=== PATIENT | female | born 1965 | race Caucasian/White ===

== ENCOUNTER → 2021-01-14 11:23 | Outpatient (CLI) | payer OTHER, SELFPAY ==
[2021-01-14] MEDS: COVID-19 VACC #1, MRNA(MOD) 100 MCG/0.5 ML VIAL IM (11:38)
== END ==
PROVIDERS: Visit Provider Internal Medicine
DX: Z23 Encounter for immunization (principal)
CPT/HCPCS: 0011A; 91301

== ENCOUNTER → 2021-02-11 11:18 | Outpatient (CLI) | payer OTHER, SELFPAY ==
[2021-02-11] MEDS: COVID-19 VACC #2, MRNA(MOD) 100 MCG/0.5 ML VIAL IM (11:25)
== END ==
PROVIDERS: Visit Provider Internal Medicine
DX: Z23 Encounter for immunization (principal)
CPT/HCPCS: 0012A; 91301

== ENCOUNTER → 2023-02-02 08:26 | Outpatient (CLI) | payer OTHER, SELFPAY ==
--- NOTE | 2023-02-02 08:28 | DI.RAD.S_ITS ---
PROCEDURE: XR FOOT LT MIN 3V INDICATIONS: Left foot pain TECHNIQUE: Three views of the foot were acquired. COMPARISON: [facility], , FOOT 3V LEFT, 06/17/2009, 13:06. FINDINGS: Bones: No acute fractures or dislocations. No suspicious bony lesions. A moderate plantar calcaneal enthesophyte is present. Mild degenerative changes of the 1st metatarsophalangeal joint and the interphalangeal joints of the toes. Mild degenerative changes at the tarsometatarsal joints. Soft tissues: No suspicious soft tissue calcification. IMPRESSION: Mild osteoarthrosis. No acute osseous abnormality. If the symptoms persist, consider cross sectional imaging such as MRI or CT for further assessment. Approved by: Roby Grover M.D. on 02/02/2023 at 12:11
== END ==
PROVIDERS: Referring Provider Nurse Practitioner Family; Visit Provider Nurse Practitioner Family
DX: M19.072 Primary osteoarthritis, left ankle and foot (principal); M79.672 Pain in left foot
CPT/HCPCS: 73630

== ENCOUNTER → 2023-07-28 13:14 | Outpatient (CLI) | payer OTHER, SELFPAY ==
--- NOTE | 2023-07-28 | DI.RAD.S_ITS ---
PROCEDURE: FL JOINT INJECTION LARGE RT INDICATIONS: Unilateral primary osteoarthritis, right hip COMPARISON: [facility], CR, XR PELVIS WITH LATERAL HIP RIGHT, 07/14/2023, 14:14. [facility], CR, XR LUMBAR SPINE 2 OR 3 VIEWS, 07/14/2023, 14:09. TECHNIQUE: The indications, alternatives, benefits, risks, and complications of the procedure were explained to the patient. Written informed consent was obtained and placed in the chart. The patient was placed in an appropriate position on the fluoroscopy table, and a site was chosen for percutaneous access under fluoroscopic guidance. The site was prepped and draped in a sterile fashion. Local anesthetic was administered using a 1% lidocaine solution. A hypodermic or spinal needle was then used to access the symptomatic joint. Intra-articular location of the needle tip was confirmed by injecting a small amount of contrast, followed by steroid administration. The needle was then withdrawn, and a bandage applied to the puncture site. FINDINGS: Joint injected: Right Medications injected: 8 mL of 40 mg/mL Kenalog and 0.5% Ropivacaine mixture. Patient's pain before injection: 5 out of 10. Patient's pain after injection: 0 out of 10. Complications: None. IMPRESSION: Successful fluoroscopically guided administration of steroid and anaesthetic solution into the right hip joint. Dictated by: Maida Diane M.D. on 07/28/2023 at 15:11 Approved by: Maida Diane M.D. on 07/28/2023 at 15:16
[2023-07-28] MEDS: TRIAMCINOLONE 40 MG/ML VIAL INTRA-ARTI (14:20)
[2023-07-28] MEDS: ROPIVACAINE 0.5% PF 5 MG/ML 20ML VIAL 20 ML INJ (14:20)
[2023-07-28] MEDS: LIDOCAINE 1% 20 ML INJ (14:20)
== END ==
PROVIDERS: Referring Provider Physical Medicine & Rehabilitation; Visit Provider Physical Medicine & Rehabilitation
DX: M16.11 Unilateral primary osteoarthritis, right hip (principal)
CPT/HCPCS: 20610; 77002

== ENCOUNTER → 2024-01-02 15:07 | Outpatient (CLI) | payer OTHER, SELFPAY ==
[2024-01-02 17:02] LABS: Add Manual Diff / Slide Review NO; Basophils Absolute Auto 100 /uL (0-100); Basophils Percent Auto 1.2 % (0-2); Eosinophils Absolute Auto 100 /uL (0-450); Hematocrit 38.5 % (36-46); Hemoglobin 13.2 g/dL (12.0-16.0); Lymphocytes Absolute Auto 2700 /uL (1100-4500); Lymphocytes Percent Auto 43.2 % (25-40); Mean Corpuscular HGB Conc 34.2 % (30-36); Mean Corpuscular Hemoglobin 32.4 PG (26-34); Mean Corpuscular Volume 94.6 fL (80-100); Monocytes Absolute Auto 400 /uL (0-900); Monocytes Percent Auto 6.4 % (3-14); Neutrophils Absolute Auto 3100 /uL (1500-7000); Neutrophils Percent Auto 48.2 % (50-75); Platelet Count 451 X10^3/uL (150-400); Red Blood Cell Count 4.07 X10^6/uL (4.0-5.2); Red Cell Distribution Width 14.5 % (11.6-14.8); White Blood Cell Count 6.4 X10^3/uL (4.5-11.0)
[2024-01-02 17:21] LABS: Erythrocyte Sedimentation Rate 17 MM/HR (0-20)
[2024-01-02 19:11] LABS: Blood Urea Nitrogen 24 mg/dL (7-17); C-Reactive Protein Quant 0.8 mg/dL (<1.0); Calcium 9.5 mg/dL (8.4-10.2); Carbon Dioxide 24 mmol/L (22-32); Chloride 106 mmol/L (98-107); Estimated Glomerular Filt Rate > 60 mL/min (>60); Glucose 87 mg/dL (70-100); HEMOLYSIS < 15 (0-50); Potassium 4.6 mmol/L (3.4-5.1); Sodium 136 mmol/L (137-145)
[2024-01-03 11:22] LABS: Hemoglobin A1C% w Est Avg Glu 5.2 % (4.0-6.0)
== END ==
PROVIDERS: Referring Provider Orthopaedic Surgery; Visit Provider Orthopaedic Surgery
DX: Z01.812 Encounter for preprocedural laboratory examination (principal); Z01.818 Encounter for other preprocedural examination; R73.9 Hyperglycemia, unspecified; R70.0 Elevated erythrocyte sedimentation rate; R79.82 Elevated C-reactive protein (CRP)
CPT/HCPCS: 36415; 80048; 83036; 85025; 85651; 86140; 93005; 93010

== ENCOUNTER → 2024-01-10 14:19 | Outpatient (CLI) | payer OTHER, SELFPAY ==
[2024-01-10 15:25] LABS: Albumin 4.1 g/dL (3.5-5.0)
[2024-01-10 16:30] LABS: Vitamin D 25 Hydroxy (D3) 23.3 ng/mL (30.0-100.0)
== END ==
PROVIDERS: Referring Provider Orthopaedic Surgery Adult Reconstructive Orthopaedic Surgery; Visit Provider Orthopaedic Surgery Adult Reconstructive Orthopaedic Surgery
DX: R77.0 Abnormality of albumin (principal); E55.9 Vitamin D deficiency, unspecified
CPT/HCPCS: 36415; 82040; 82306; 84134

== ENCOUNTER 2024-02-10 06:16 | Day surgery (SDC) | payer OTHER, SELFPAY ==
[2024-02-02 09:41] VITALS: BMI 40.7
[2024-02-10] VITALS (13 sets, daily range): BP systolic 97–149; BP diastolic 45–76; PULSE 67–99; RESP 10–20; TEMP 35.8–37; O2SAT 91–100; BMI 40.6
--- NOTE | 2024-02-10 | DI.RAD.S_ITS ---
PROCEDURE: XR HIP W PEL IF DONE RT 2V INDICATIONS: RT TOTAL HIP TECHNIQUE: 2 view(s) of the hip acquired. COMPARISON: [facility], [place], XR PELVIS WITH LATERAL HIP RIGHT, 01/09/2024, 9:54. FINDINGS: Multiple intraoperative fluoroscopic images of the right hip demonstrate interval postsurgical changes of right total hip arthroplasty. IMPRESSION: Intraoperative fluoroscopic support for right total hip arthroplasty. Please see separate operative note for further details. Dictated by: Osman Greenberg M.D. on 02/10/2024 at 21:39 Approved by: Osman Greenberg M.D. on 02/10/2024 at 21:40
--- NOTE | 2024-02-10 06:00 | DI.RAD.S_ITS ---
PROCEDURE: XR HIP W PEL IF DONE RT 2V INDICATIONS: EMANUEL TECHNIQUE: AP pelvis and lateral view of the hip acquired. COMPARISON: [facility], CR, XR PELVIS WITH LATERAL HIP RIGHT, 01/09/2024, 9:54. [facility], CR, XR HIP W PEL IF DONE RT 2V, 02/10/2024, 9:10. FINDINGS: Bones: Patient is status post right hip arthroplasty, with hardware components in expected positions. The hip joint appears congruent. The visualized bony structures appear intact. Soft tissues: Overlying postoperative changes are noted. No suspicious soft tissue densities. Stable coarse calcification in the left lower pelvis likely representing calcified uterine fibroid. IMPRESSION: Expected post-operative appearance of a hip arthroplasty. Dictated by: Osman Greenberg M.D. on 02/10/2024 at 21:44 Approved by: Osman Greenberg M.D. on 02/10/2024 at 21:45
[2024-02-10] MEDS: MELOXICAM 7.5 MG TABLET PO (06:43)
[2024-02-10] MEDS: LACTATED RINGERS 1,000 ML 42 ML IV ×3 (06:43→10:17)
[2024-02-10] MEDS: ACETAMINOPHEN 325 MG TABLET 975 MG PO (06:43)
--- NOTE | 2024-02-10 07:44 | PM.PREOP ---
Pre-operative Note Interval Note History & Physical reviewed/Exam performed by Physician: Yes Changes to H&P: No
[2024-02-10] MEDS: CEFAZOLIN 2 GM/100 ML PREMIX 100 ML IV ×2 (08:00→15:37)
[2024-02-10] MEDS: TRANEXAMIC ACID 1,000 MG VIAL 2000 MG INJ ×2 (08:10→10:10)
--- NOTE | 2024-02-10 08:40 | SUR.OPER ---
Patient supine on padded [place] table, one arm on padded arm board at <90, other arm padded and secured with tape across patient's chest, both legs secured in padded traction boots and positioned per surgeon, padded post at patient's groin, pressure points checked and padded.
[2024-02-10] MEDS: ROPIVACAINE/EPI/CLONIDINE/KET 50 ML SYRINGE INJ (08:48)
--- NOTE | 2024-02-10 10:34 | PM.OP.1 ---
Operative Date/Time/Diagnoses Date of procedure: 02/10/24 Pre-op diagnosis: Right hip arthritis Post-op diagnosis: same Procedure & Clinicians Procedure: Right total hip arthroplasty (99432) Same procedure as scheduled: Yes Surgeon: Mendoza Bacon Slat Basket Maker: [place] Anesthesia Type: General, Spinal and Local Operative Notes Estimated Blood Loss (mL): 500 Procedure in detail: Right Uncemented Direct Anterior Total Hip Arthroplasty: Implants: Depuy Total Hip Arthroplasty: Depuy [place] Gription size 56 cup? Depuy Actis femoral stem size 6 high offset? 36 mm +8.5 ceramic femoral head? Procedure Summary: This 58-year-old female patient presented with debilitating symptoms secondary to right hip arthritis. She has a BMI of 41 and was otherwise optimized for surgery. According to guidance from the [place] and [place] [employer] regarding patients with a BMI over 40, surgical consideration was not with held due to her weight as an isolated risk factor. I did discuss with her the increased risk associated with her surgery based on her high BMI. She understood these risks and wished to proceed with the elective total hip arthroplasty. Intraoperatively she did have a large soft tissue envelope around the thigh. I managed this with additional layers of barbed suture beyond my normal closure technique as well as a clifton incisional wound VAC device. With regards to her implants, I utilized larger implants on both the acetabular and femoral sides. I had templated her for a 52 on the cup and ended up using a 56. I had templated her for a 4 on the stem and ended up using a 6. Acetabular reaming extended further than anticipated based on templating and I had templated for a standard offset so I utilized a high offset. She had provokable instability with manual external rotation with a +1.5 head and a +5 head. She maintained hip stability out to 115? of external rotation with a +8.5 head. Fluoroscopy indicated that she had likely been slightly lengthened with this construct however I felt that it was most appropriate to prioritize stability over leg lengths in her case. Procedure in Detail: This patient was seen preoperatively and evaluated for hip pain which was refractory to numerous nonoperative treatment modalities. Their hip pain correlated with radiographic changes demonstrating significant degeneration in the hip joint. The risks and benefits of continued nonoperative management versus operative management were discussed at length and all of the patient?s questions were answered. Additional educational materials providing further details beyond our discussion in clinic were provided via a publicly available patient education video which included the incidence of medical complications associated with total hip arthroplasty, reasons for revision following total hip arthroplasty, and patient satisfaction rates following total hip arthroplasty. That video can be accessed at [email or web address] . With this understanding of the risks inherent to the procedure, the patient elected to move forward with operative management. Following preoperative optimization, the patient was scheduled for surgery. The patient was met in the preoperative holding area the day of the procedure and all questions were answered. The patient?s nares were swabbed with betadine in order to decolonize them from MRSA. Informed consent was signed and the operative limb was marked with indelible ink.? The patient was brought back to the operating room where anesthesia was induced. The patient was transferred to the [place] table and all bony prominences were padded. The operative site was prepped and draped in the usual sterile fashion. Prior to incision, tranexamic acid and cefazolin were administered. Operative templating images were displayed demonstrating the anticipated implant sizes and correct operative extremity. A timeout procedure was performed verifying the patient?s identity, medical comorbidities, allergies, relevant medications, anesthesia type and the surgical plan. All present were in agreement. The assistance of a physician endodontic assistant was required for positioning, room setup, soft tissue retraction and wound closure. Without this assistance, the procedure would have been significantly more challenging and time consuming.?? A direct anterior approach to the hip was utilized. This was performed with a longitudinal incision through a Heuter interval. The incision was planned 2 cm distal and 2 cm lateral to the ASIS extending towards the lateral patella, in line with the muscle body of the TFL. Following incision, the subcutaneous tissue was dissected while taking care to avoid injury to the lateral femoral cutaneous nerve. The fascia overlying the TFL was identified by dissecting off the overlying fat and identifying perforating vessels to the TFL. The TFL fascia was incised and dissected away from the medial border of the TFL. A cobra retractor was placed over the superior femoral neck between the abductors and the hip capsule and used to reflect the TFL laterally. A [place] self-retainer was then placed in the distal aspect of the wound between the TFL and the rectus femoris. This was tensioned to open up the direct anterior interval and the lateral circumflex vessels were identified and coagulated using electrocautery. The floor of the TFL fascia was incised, exposing the pericapsular fat overlying the hip capsule. A second cobra retractor was placed on the inferior femoral neck. A double-bent soft tissue retractor was placed on the anterior wall of the acetabulum and used to tension the reflected head of rectus femoris, which was then released in order to limit soft tissue tension. A capsulotomy was made in the midline of the anterior hip capsule in line with the femoral neck ending at the vastus tubercle. The double-bent retractor was removed in order to limit the amount of time that a soft tissue retractor remained on the anterior wall and protect the femoral nerve. Tag stitches were placed in the superior and inferior leaflets of the hip capsule. An [place] soft tissue retractor was introduced over the tag stitches and tensioned in the interval between the rectus femoris and the TFL in order to retract and protect those muscles. The cobra retractors were replaced intracapsularly, with one over the superior neck in the pocket created by the base of the greater trochanter and the other on the femoral head. The capsulotomy was extended laterally to the base of the greater trochanter and medially to the lesser trochanter. This required externally rotating the hip. Once the lesser trochanter had been identified, a neck cut was planned according to measurements from preoperative templating. A ruler was cut at the length measured between the superior aspect of the lesser trochanter and the collar of the prosthesis. This line was extended towards the inferior aspect of the lateral cobra retractor to plan a cut which would leave minimal residual femoral neck laterally. The neck was cut at 60 degrees of external rotation along that line. A second cut was performed to remove a large napkin ring and facilitate head extraction. The napkin ring cut and femoral head were removed.?? A broad anterior wall retractor was placed between the labrum and the anterior capsule so that the anterior capsule would prevent capturing and pinching the femoral nerve anteriorly. An additional retractor was placed on the posterior wall. External rotation and traction were applied through the [place] table so that the cut surface of the femoral neck would not restrict access to the acetabulum. The labrum was excised sharply and the pulvinar was excised with electrocautery to limit bleeding from branches of the obturator artery. Acetabular reamers were selected based on preoperative templating and measurements of the excised femoral head. These were introduced into the acetabulum. Fluoroscopy was utilized to replicate a standing AP pelvis radiograph by centering over the pelvis, rotating until there was appropriate symmetry between the obturator foramen, and introducing caudal tilt to match the position of the pubic symphysis relative to the sacrococcygeal junction according to the patient?s anatomy. Fluoroscopy was utilized to ensure appropriate reaming depth. Once satisfied with the reaming depth corresponding to the preoperative template and the pinch fit between the columns, an appropriate sized acetabular cup was selected which would provide 1 mm of press-fit. This cup was introduced and manipulated until appropriate abduction and anteversion angles were obtained with careful attention to appropriate abduction and anteversion angles as evaluated by the position of the cup relative to the anterior and posterior herzog of the acetabulum and the AP fluoroscopy which recreated the patient?s standing radiograph. The cup was impacted into place. Peripheral osteophytes were removed. The acetabular liner was then placed with care to ensure locking of the locking mechanism.? Attention was then turned to the femur. All retractors were removed, traction was released, a retractor was placed in the interval between the hip capsule and the gluteus minimus, and the hip was externally rotated to 90 degrees. Traction was applied through the [place] table to tension the lateral capsule and this was released using electrocautery. Traction was released and a [place] hook was placed posteriorly around the proximal femur at the level of the vastus ridge. The table height was lowered in order to restrict the tension on the anterior structures during hip hyperextension to limit the risk of femoral nerve palsy. With traction off and the hip at 90 degrees of external rotation, the hip was hyperextended and adducted while manually elevating the femur away from the acetabulum with the [place] hook to ensure it would not be caught behind the greater trochanter. An asymmetric retractor was placed over the calcar and a broad double-pronged retractor was placed over the greater trochanter. The tag stitch capturing the lateral leaflet of the capsule was moved to the medial side, leaving the conjoined and piriformis tendons isolated in the face of the greater trochanter. The hip was externally rotated and elevated. A release of the conjoined tendon was necessary in order to obtain adequate exposure for broaching. The canal was opened with an opening broach and a rasp was used to remove cancellous bone. A rongeur was used to remove the residual lateral bone at the base of the greater trochanter to avoid placing the stem in varus. The femur was then broached to the appropriate sized stem yielding good rotational fit and fill of the canal as well as appropriate version of the stem trial. Neck and head trials were placed, all retractors were removed and the hip was returned to neutral abduction and extension. I then reduced the hip. Manual testing of stability with that initial head, which was a +1.5 head, revealed instability with manual external rotation. I upsized to a +5 head and still had instability with manual external rotation. I upsized to a +8.5 head. This provided stability out to 110? of external rotation. An AP pelvis fluoroscopic image matching the preoperative standing radiograph was obtained with both lesser trochanters visible and both hips in 40 degrees of external rotation. This demonstrated that the operative site appeared slightly long and offset was similar to the contralateral side. An AP hip fluoroscopic image was obtained with the hip in neutral rotation which demonstrated appropriate canal fill. The hip was dislocated and I returned to the broaching position. The definitive stem was placed and the trunnion was cleaned and dried. I placed a ceramic head onto the trunnion and impacted it into place on the [place] taper.?? All retractors were removed and the hip was reduced. A dilute mixture of betadine and peroxide was used to bathe the soft tissues during final fluoroscopic assessment. Appropriate component positioning was confirmed on an AP pelvis radiograph with the operative and nonoperative legs in 40 degrees of external rotation, evaluating leg length and offset. Appropriate stem fill was evaluated on an AP hip radiograph with the operative leg in neutral rotation. No fractures were identified on these radiographs. Stability was satisfactory with a 90 degree external rotation test as well as a 45 degree drop test. The hip was copiously irrigated with pulse lavage. The capsule was closed with absorbable interrupted suture. The TFL fascia was closed with barbed suture while carefully protecting the lateral femoral cutaneous nerve from entrapment. A mixture of Ropivacaine, Epinephrine, Clonidine and Toradol was infiltrated throughout the soft tissues. The skin was closed with 2-0 and 3-0 sutures. Surgical glue was applied and a soft dressing was placed.??The sponge, instrument and needle counts were reported as being correct at the end of the case.??No obvious complications occurred. The patient was transferred from the [place] table back to a stretcher. The patient emerged from anesthesia without difficulty and was taken to the PACU in a stable condition.? Plan for aftercare: Anterior hip precautions Weightbearing as tolerated Mobilization as soon as the patient has recovered from anesthesia. If physical therapists are unavailable at the time the patient is ready to ambulate, then nursing staff should help patient ambulate Aspirin 81 twice per day for DVT prophylaxis Multimodal pain regimen with no IV opioids ordered Anticipate discharge home today Follow up at [facility] in 2 weeks Detailed postoperative instructions available at [email or web address]
[2024-02-10] MEDS: OXYCODONE IR 5 MG TABLET PO ×5 (10:41→21:22)
[2024-02-10] MEDS: hydrOXYzine 50 MG/ML INJ 25 MG IM (10:43)
[2024-02-10] MEDS: LACTATED RINGERS 1,000 ML 100 ML IV (14:05)
[2024-02-10] MEDS: ACETAMINOPHEN 325 MG TABLET 650 MG PO ×3 (14:11→22:49)
[2024-02-10] MEDS: IBUPROFEN 600 MG TABLET PO ×3 (14:11→22:51)
--- NOTE | 2024-02-10 15:25 | PT.IIE ---
Current Diagnoses Unilateral primary osteoarthritis, right hip (02/10/24) Surgery Performed Operation Date: 02/10/24 07:45 Actual Procedures p Total Hip Arthroplasty/Anterior Approach(Right) - Mendoza Bacon MD Surgical History (Last Reviewed 02/10/24 @ 06:41 by Poornima Case, EDWARD) History of Hx of appendectomy Hx of foot surgery Medical History (Last Updated 02/02/24 @ 10:09 by Hina Clement RN) Easy bruisability GERD (gastroesophageal reflux disease) History of COVID-19 (04/2022) Osteoarthritis Physical Therapy Inpatient Evaluation/Re-Eval M1 PT/OT-IP Prior Functional Status Start: 02/10/24 16:49 Freq: NEEDED Status: Active Protocol: Document 02/10/24 15:25 AB (Rec: 02/10/24 17:06 AB [id number]) Medical Review Prior Functional Status Medical History Reviewed Yes Communication able to make needs known Mobility and Gait pt stated that she was modified independent with all mobilities and ambulation without AD but stared using a SPC ~ 1 month ago due to hip pain Social History Household Members children Living Arrangements House Number of Floors (Floors) One Floor Number of Stairs To Enter/Railing? pt will be going to her other daughter's house upon d/c: info below is regaring pt's daughter house no steps to enter Home Environment Standard Height Toilet,Tub/ Shower Home Equipment Front Wheel Walker,Straight Cane,Hand Held Shower Additional Social History Comment pt lives with her daughter M2 PT-IP Current Condition Start: 02/10/24 16:49 Freq: NEEDED Status: Active Protocol: Document 02/10/24 15:25 AB (Rec: 02/10/24 17:06 AB [id number]) Physical Therapy Current Condition Current Condition Evaluation Date 02/10/24 Treatment Diagnosis s/p R EMANUEL anterior; difficulty in walking Onset Date 02/10/24 M3 PT-IP Subjective Start: 02/10/24 16:49 Freq: NEEDED Status: Active Protocol: Document 02/10/24 15:25 AB (Rec: 02/10/24 17:06 AB [id number]) Subjective Physical Therapy Visit Type Type Initial Evaluation Visit Start Time 15:25 Visit Stop Time 16:20 Number of SALON SHAMPOO ASSISTANT Visits 0 Physical Therapy Visit Comments Patient Comments agreeable to do PT Therapy Pain Assessment Pain When Pain Assessed At Rest Pain Present Pain Present Pain Reported Location Right Hip Intensity 5 Scale Used Numeric (0 - 10) Pain Management Techniques Apply Cold,Distraction, Modification of Treatment,Re- positioning,Timing of Activity with Medications M4 PT-IP Mobility and Gait Start: 02/10/24 16:49 Freq: NEEDED Status: Active Protocol: Document 02/10/24 15:25 AB (Rec: 02/10/24 17:06 AB [id number]) PT-Bed Mobility Assessment Supine to Sit Supine to Sit Standby Assistance Sit to Supine Sit to Supine Maximum Assistance,2 Person Assistance,Bedrails PT-Transfer Assessment Sit to and From Stand Sit to and from Stand Maximum Assistance,Total Assistance,2 Person Assistance ,Use of Upper Extremities Comments Mobility Comments pt suipne in bed and agreeable to do PT. pt wants to go home tonight. obtained PLOF and home set up. daughters present. post-op folder provided and reviewed contents . educated pt and daughter regarding R hip anterior precauations. pt able to recall. BP in supine: 109/58. pt completed supine to sit SBA. able to sit on EOB SBA. c/o initial dizziness. BP: 108/ 54. pt tolerated ~ 2 min sitting on EOB. BP checked again: 106/54. pt with full sensation back on BLE but seems to have decreas motor control on RLE with increase internal rotation when moving and pt unable to control Nurse in room to assist. educated pt on sit to stand techniques and stability of RLE. pt understood. pt completed sit to stand max A x 2 and max cues. (+) LOB requiring max A x 2 to total A x 2 for controlled sitting on EOB. (+) R knee buckling and pt unable to control. assisted pt back to bed max A x 2 for bed mobility sit to supine. positioned pt in bed. call light and table placed within reach. caregiver training set up for tomorrow at 9am. Gait Assessment Comments Gait Comments unable at this time PT-Balance Assessment Sitting Balance and Reactions Static Sitting Balance Ability Good Dynamic Sitting Balance Ability Good Standing Balance and Reactions Static Standing Balance Ability Poor Dynamic Standing Balance Ability Poor Device Used FWW M5 PT-IP Objective Assessments Start: 02/10/24 16:49 Freq: NEEDED Status: Active Protocol: Document 02/10/24 15:25 AB (Rec: 02/10/24 17:06 [id number]) Orientation Orientation/Cognition Level of Alertness Alert Orientation Name,Situation Language Function Ability No Deficits Noted Safety Awareness Decreased Safety Awareness Memory Description No Deficits Noted Gross Range of Motion Lower Extremity ROM Assessment Within Functional Limits Strength Lower Extremity Strength Assessment Right Impaired Hip 2+/5 Knee 3+/5 Coordination Assessment Gross Coordination Gross Coordination WNL Sensation Assessment Sensation Gross Sensation WNL Muscle Tone Muscle Tone WNL Yes M6 PT-IP Treatment Start: 02/10/24 16:49 Freq: NEEDED Status: Active Protocol: Document 02/10/24 15:25 AB (Rec: 02/10/24 17:06 [id number]) Physical Therapy Treatment Education Education Provided Precautions,Weight Bearing Status,Post-Op Packet,Safety M7 PT-IP Assessment and Plan Start: 02/10/24 16:49 Freq: NEEDED Status: Active Protocol: Document 02/10/24 15:25 AB (Rec: 02/10/24 17:06 [id number]) PT Summary Assessment and Plan Potential Rehabilitation Potential Fair Status of Condition at Evaluation Evolving Summary Impairments Pain,ROM,Strength,Balance, Coordination,Sensation,Tone, Cognition,Bed Mobility, Transfers,Gait,Activity Tolerance Assessment Summary pt is a 58 y/o F s/p R EMANUEL anterior approach POD 0. pt has R hip anterior precautions and is WBAT. pt requiring SBA to supine to sit but required max A x 2 for sit to supine. pt does not have full motor control back on RLE and unable to tolerate standing with (+) R knee buckling requiring max A x 2 to total A x 2. caregiver training set up for tomorrow at 9 am. will continue to assess progress. Goals Bed Mobility Goal Independent Transfer Goal Independent,Front Wheeled Walker Gait Goal Independent,Front Wheel Walker Gait Distance 150 Days to Meet Goals 5 Frequency of Treatment Frequency Of Treatment Twice a Day Treatment Plan Physical Therapy Treatment Plan Bed Mobility Training,Transfer Training,Gait Training, Therapeutic Exercise,Balance Retraining,Post Op Education, Discharge Planning,Hot or Cold Pack,Neuromuscular Re-ed, Coordination Retraining,Manual Therapy Precautions Anterior Hip Precautions No Hip Extension,No Hip External Rotation Weight Bearing Status Weight Bearing Status Weight Bear as Tolerated Allowed Weight Bearing Amount (enter % RLe WBAT or #) (%) Recommendations To Nursing Amount of Assist Needed Mechanical Lift Discharge Recommendations PT Discharge Recommendations Home with 23/05 Assist Available,Home Health,SNF Rehab Transportation Needs at Discharge Private Vehicle,Wheelchair/ Cabulance
--- NOTE | 2024-02-10 17:37 | PC.NURSE ---
Patient arrived to room 213 this afternoon A&OX4, slightly hypotensive but denies dizziness. She is encouraged to drink fluid and connected to maintenance IVF ordered. She denies numbness or tingling to BLE's dressing to R hip c/d/i with clifton dressing flashing green light. She reports pain increasing to 5-7/10 well controlled with prn Oxycodone. PT at bedside working with patient on standing and pt's R knee buckled while she attempted to march in place. She is assisted to lie back down. She is able to void adequately on bed izaguirre, and tolerates dinner well. SCD's in place, IS encouraged, call light in reach, bed alarm on, and continuous monitoring. Daughters supportive at bedside plan to be back for caregiver training tomorrow at 0900 a.m.
[2024-02-10] MEDS: TRAMADOL 50 MG TABLET PO (20:40)
[2024-02-10] MEDS: DOCUSATE 100 MG CAPSULE PO (20:41)
[2024-02-10] MEDS: ASPIRIN EC 81 MG TABLET PO (20:41)
--- NOTE | 2024-02-10 23:27 | PM.PN.1 ---
Subjective Subjective Interval history: Patient seen postoperatively. Resting in bed. Complains of pain in her anterior hip. Had initially anticipated going home today however when she worked with physical therapy she had an episode of knee buckling. Her femoral nerve function is intact as demonstrated by ability to fire her quads and maintain a straight leg raise. This does cause her discomfort. Her dressing was clean dry and intact. She has a ice machine running on her anterior thigh. I will give her an additional dose 5 mg oxycodone this evening and counseled her that we can expect her pain to continue to improve on a daily basis moving forward from here. Anticipate that she will ambulate better with physical therapy tomorrow and cleared for discharge home Exam Vital Signs (past 8 hours): - 02/10/24 16:00 02/10/24 20:50 Temperature 97.8 F 98.6 F Pulse Rate 81 99 H Respiratory Rate 16 16 Blood Pressure 106/57 L 104/61 Pulse Oximetry 98 96 Oxygen Flow Rate 0 Oxygen Delivery Method Room Air Oxygen Flow Rate 0 PFSH Medical History (Updated 02/02/24 @ 10:09 by Hina Clement RN) Easy bruisability Osteoarthritis GERD (gastroesophageal reflux disease) History of COVID-19 (04/2022) Surgical History Hx of foot surgery History of Hx of appendectomy Social History household members: children Smoking Status: Former smoker alcohol intake: current
[2024-02-11] MEDS: CEFAZOLIN 2 GM/100 ML PREMIX 100 ML IV (00:09)
[2024-02-11] MEDS: OXYCODONE IR 5 MG TABLET PO ×7 (00:09→22:15)
[2024-02-11] MEDS: ACETAMINOPHEN 325 MG TABLET 650 MG PO ×4 (04:49→22:15)
[2024-02-11] MEDS: IBUPROFEN 600 MG TABLET PO ×4 (04:50→22:18)
[2024-02-11] MEDS: ONDANSETRON 4 MG ODT PO (05:02)
[2024-02-11] MEDS: PANTOPRAZOLE DR 20 MG TABLET PO (05:09)
[2024-02-11 06:42] LABS: Hematocrit 26.4 % (36-46); Hemoglobin 8.9 g/dL (12.0-16.0)
[2024-02-11] MEDS: ASPIRIN EC 81 MG TABLET PO ×2 (08:27→20:17)
[2024-02-11] MEDS: DOCUSATE 100 MG CAPSULE PO ×2 (08:28→20:17)
--- NOTE | 2024-02-11 09:00 | PT.IPTN ---
Current Diagnoses Unilateral primary osteoarthritis, right hip (02/10/24) Surgery Performed Operation Date: 02/10/24 07:45 Actual Procedures p Total Hip Arthroplasty/Anterior Approach(Right) - Mendoza Bacon MD Physical Therapy Treatment Note M2 PT-IP Current Condition Start: 02/10/24 16:49 Freq: NEEDED Status: Active Protocol: Document 02/10/24 15:25 AB (Rec: 02/10/24 17:06 AB [id number]) Physical Therapy Current Condition Current Condition Evaluation Date 02/10/24 Treatment Diagnosis s/p R EMANUEL anterior; difficulty in walking Onset Date 02/10/24 M3 PT-IP Subjective Start: 02/10/24 16:49 Freq: NEEDED Status: Active Protocol: Document 02/11/24 10:17 TS (Rec: 02/11/24 10:31 TS [id number]) Subjective Physical Therapy Visit Type Type Treatment Note Visit Start Time 09:00 Visit Stop Time 09:40 Notes Family present Number of TUMBLERS SUPERVISOR Visits 1 Physical Therapy Visit Comments Patient Comments Pt found resting in bed, reports having nausea and some lightheadedness this morning, RLE feels stronger today, pt is agreeable to PT. Therapy Pain Assessment Pain When Pain Assessed At Rest Pain Present Pain Present Pain Reported M4 PT-IP Mobility and Gait Start: 02/10/24 16:49 Freq: NEEDED Status: Active Protocol: Document 02/11/24 10:17 TS (Rec: 02/11/24 10:31 TS [id number]) PT-Bed Mobility Assessment Supine to Sit Supine to Sit Minimal Assistance Scooting Scooting to Edge of Bed Minimal Assistance PT-Transfer Assessment Sit to and From Stand Sit to and from Stand Contact Guard Assistance,1 Person Assistance Equipment Transfer Assistive Device Gait Belt,Front Wheeled Walker Comments Mobility Comments BP supine 105/37. Supine to sit HOB elevated 25D Jammie for LE's, pt scoots to EOB with BUE support. Daughter was instructed in and performed donning of gait belt. STS CGA with daughter and use of FWW. BP standing 107/51. She ambulated in room ~10' CGA with FWW, pt reported nausea, lightheadedness and thermal changes, required to sit EOB. BP in sitting 122/41. Stand pivot to commode CGA with cues for sequencing. STS from commode CGA, pt ambulated another ~10' to chairCGA. PRIMITIVO Stuart in room discussing d/c with pt, will give fluids to improve BP. Pt was educated on intensity and frequency of ther-ex. Pt was left in bed, all needs met. Gait Assessment Gait Gait Assistance Required: Contact Guard Assist Distance (Feet) 20 Assistive Devices Assistive Device Front Wheeled Walker Orthotic/Prosthetic Devices or Brace: No Gait Deviations General Gait Pattern Wide Based Gait Factors Limiting Gait Function Factors Limiting Gait Function Decreased Activity Tolerance, Decreased Strength,Pain,Poor Balance,Poor Safety Awareness PT-Balance Assessment Sitting Balance and Reactions Static Sitting Balance Ability Good Dynamic Sitting Balance Ability Good Standing Balance and Reactions Static Standing Balance Ability Fair Dynamic Standing Balance Ability Fair Device Used FWW M5 PT-IP Objective Assessments Start: 02/10/24 16:49 Freq: NEEDED Status: Active Protocol: Document 02/10/24 15:25 AB (Rec: 02/10/24 17:06 AB [id number]) Orientation Orientation/Cognition Level of Alertness Alert Orientation Name,Situation Language Function Ability No Deficits Noted Safety Awareness Decreased Safety Awareness Memory Description No Deficits Noted Gross Range of Motion Lower Extremity ROM Assessment Within Functional Limits Strength Lower Extremity Strength Assessment Right Impaired Hip 2+/5 Knee 3+/5 Coordination Assessment Gross Coordination Gross Coordination WNL Sensation Assessment Sensation Gross Sensation WNL Muscle Tone Muscle Tone WNL Yes M6 PT-IP Treatment Start: 02/10/24 16:49 Freq: NEEDED Status: Active Protocol: Document 02/11/24 10:17 TS (Rec: 02/11/24 10:31 TS [id number]) Physical Therapy Treatment Education Education Provided Precautions,Weight Bearing Status,Post-Op Packet,Safety M7 PT-IP Assessment and Plan Start: 02/10/24 16:49 Freq: NEEDED Status: Active Protocol: Document 02/11/24 10:17 TS (Rec: 02/11/24 10:31 TS [id number]) PT Summary Assessment and Plan Potential Rehabilitation Potential Fair Summary Impairments Pain,ROM,Strength,Balance, Coordination,Sensation,Tone, Cognition,Bed Mobility, Transfers,Gait,Activity Tolerance Progress Towards Goals Progressing Toward Goals Assessment Summary Stephanie is making progress with her mobility but is somewhat limited by ongoing nuasea and lightheadedness. She is Jammie for all bed mobility. She performed STS x2 CGA with FWW. She ambulated 2x~10' with FWW and slow step to gait, due to nausea and lightheadedness required a rest break. Daughter was instructed in and performed donning of gait belt, STS and gait training. PT is recommending home 24/7 and outpatient PT. Goals Bed Mobility Goal Independent Transfer Goal Independent,Front Wheeled Walker Gait Goal Independent,Front Wheel Walker Gait Distance 150 Days to Meet Goals 5 Frequency of Treatment Frequency Of Treatment Twice a Day Treatment Plan Physical Therapy Treatment Plan Bed Mobility Training,Transfer Training,Gait Training, Therapeutic Exercise,Balance Retraining,Post Op Education, Discharge Planning,Hot or Cold Pack,Neuromuscular Re-ed, Coordination Retraining,Manual Therapy Precautions Anterior Hip Precautions No Hip Extension,No Hip External Rotation Weight Bearing Status Weight Bearing Status Weight Bear as Tolerated Allowed Weight Bearing Amount (enter % RLe WBAT or #) (%) Recommendations To Nursing Amount of Assist Needed 1 Person Assist Discharge Recommendations PT Discharge Recommendations Home with 24/7 Assist Available,Outpatient PT Transportation Needs at Discharge Private Vehicle
--- NOTE | 2024-02-11 09:45 | PM.DS.1 ---
History of Present Illness History of Present Illness Date Patient Seen: 02/11/24 Time Patient Seen: 09:45 Chief complaint: Hip pain Narrative: Hip pain has been moderate. Denies fever or chills. No shortness of breath or chest pain. Patient just finished with physical therapy and felt a little lightheaded as well as nauseous. Sitting in bedside chair patient does not feel lightheaded or dizzy and has no nausea. Patient has her daughter home to assist her. Discharge Providers Provider Discharge Date: 02/11/24 Consults: 02/10/24 06:00 Consult to Anesthesiology Routine Comment: Consulting Provider: Anesthesiologist Reason for consultation: Regional block for post operative pain control 02/10/24 11:12 Consult to Discharge Planning Routine Comment: Consult to Physical Therapy Evaluate & Treat Comment: Physician Instructions: post op EMANUEL protocol Discharge provider: Steve Mujica PA-C Summary Hospital Course Discharge Diagnosis: Right hip osteoarthritis Hospital Course: Right total hip arthroplasty (35481) Same procedure as scheduled: Yes Surgeon: Mendoza Bacon Lithographers Printer: [place] Anesthesia Type: General, Spinal and Local Operative Notes Estimated Blood Loss (mL): 500 Procedure in detail: Right Uncemented Direct Anterior Total Hip Arthroplasty: Implants: Depuy Total Hip Arthroplasty: Depuy [place] Gription size 56 cup? Depuy Actis femoral stem size 6 high offset? 36 mm +8.5 ceramic femoral head? Patient admitted to the hospital for right total hip arthroplasty. Patient consented to the same. Patient underwent right total hip arthroplasty February 10, 2024. Patient back in her room recovering well as in stable condition. Patient felt a little dizzy and nauseous when working with physical therapy this morning. Show increase her calorie and fluid intake. She will work with physical therapy again this afternoon. She will likely be able to discharge home after PT if safe for home environment. Status at Discharge Cognitive/behavioral status at discharge: at baseline, oriented Functional status at discharge: uses cane/walker Overall status at discharge: patient is progressing back to baseline Exam Vital Signs (past 8 hours): Oxygen Delivery Method Room Air Oxygen Flow Rate 0 Narrative Exam Narrative: 58-year-old female resting comfortably in bedside chair in no apparent distress. Dressing is clean, dry and intact. Motor functions intact bilateral lower extremities. Const General: cooperative and comfortable Nutritional Appearance: well nourished and obese (BMI 40.7) Orientation: alert Resp Effort & Inspection: normal respiratory effort and able to speak in complete sentences Objective Labs 02/11/24 06:20 Labs: Laboratory Results - last 24 hr 02/11/24 06:20 Hgb 8.9 L Hct 26.4 L PFSH Medical History Easy bruisability Osteoarthritis GERD (gastroesophageal reflux disease) History of COVID-19 (04/2022) Surgical History Hx of foot surgery History of Hx of appendectomy Social History household members: children Smoking Status: Former smoker alcohol intake: current Discharge Assessment & Plan Assessment and Plan Assessment: Patient progressing as expected status post right total hip arthroplasty Plan of Treatment: Patient will increase calories this morning and fluid intake. Mobilize with physical therapy, anterior hip precautions Aspirin 81 mg b.i.d. for DVT prophylaxis x6 weeks Multimodal pain management Patient will work with physical therapy again this afternoon Discharge home after physical therapy if safe for home environment Discharge Plan Discharge Plan Patient Disposition: Home Provider Discharge Comment: [email or web address] Discharge orders & Medications Discharge Orders: Discharge (Order); Ordered 02/11/24 Ordered By: Steve Mujica Prescriptions: New acetaminophen 325 mg Tablet 650 mg PO Q6H Qty: 60 0RF aspirin 81 mg Tablet,Delayed Release (Dr/Ec) 81 mg PO BID Qty: 60 0RF Rx Instructions: Continue aspirin for 6 weeks postop tramadol 50 mg Tablet 50 mg PO QID PRN (Reason: Pain, Moderate (4-6)) Qty: 10 0RF Continued celecoxib 200 mg Capsule 200 mg PO DAILY esomeprazole magnesium 20 mg Capsule,Delayed Release(Dr/Ec) 20 mg PO DAILY Discontinued acetaminophen 500 mg Tablet 1,000 mg PO DAILY PRN (Reason: Pain) Follow up/Referrals: Mendoza Bacon MD [Physician] - (Follow up at [facility] as scheduled in 2 weeks. ) Diet/Activity/Treatments Diet: Diet as Tolerated Activity: Weight-bearing as tolerated, anterior hip precautions Cold/Heat Therapy: Ice to the hip for additional pain control Skin/Wound/Dressing Care Report to your healthcare provider any signs of infection, such as:: chills, fever, night sweats, unusual drainage and unusual redness Dressing: Keep dressing intact, clean and dry until 2 week post-op appointment. No soaking the incision site in pools or tubs. No topical ointments or creams to the incision site. Visit Report/Discharge Packet Instructions: DI for Hip Replacement, DI for Prescription Opioid Use Stand Alone Forms: Patient Portal/API, Surgery Discharge Discharge Data Attending Provider: Mendoza Bacon
[2024-02-11] MEDS: ONDANSETRON 4 MG/2 ML INJ IV ×2 (10:01→15:33)
--- NOTE | 2024-02-11 14:07 | CM.DANOTE ---
Initial DCP Assessment Note Pt is a 58 yo female, resident of [place], now POD#1 from right EMANUEL by Dr Bacon PCP: Unknown Payer: [facility] Reviewed chart, pt discussed in multidisciplinary rounds this morning. Therapy has cleared pt for return home w/family to assist and pt has planned for home, DC order from Ortho has already been initiated this morning. No barriers identified at this time to patient's safe discharge home w/family to assist; close outpatient f/u recommended. CM team will plan to follow closely in case any DC needs or concerns arise. THOMAS Moses Discharge Planning/Care Management CM Discharge Assessment Start: 02/11/24 14:05 Freq: Status: Active Protocol: Document 02/11/24 14:05 OSMAN (Rec: 02/11/24 14:07 OSMAN [id number]) Discharge Planning Assessment Assigned Trim Carpenter THOMAS Beasley DPOA/Assigned Designee Name Sofy (daughter) Catrina (daughter) Advance Directives? No History Provided By Patient,Medical Record Prior Living Arrangements House Household Members children Type of transporation used prior to Drives own vehicle admit Independent with ADL's Yes Is patient alert and oriented? Yes Patient/Family Preference OP PT Therapy Barriers to Discharge No Comment Having some pain an BP issues today per therapy team Discharge Plan Home Transportation Arrangement Family Referrals Initiated None needed
--- NOTE | 2024-02-11 14:18 | PT.IPTN ---
Current Diagnoses Unilateral primary osteoarthritis, right hip (02/10/24) Surgery Performed Operation Date: 02/10/24 07:45 Actual Procedures p Total Hip Arthroplasty/Anterior Approach(Right) - Mendoza Bacon MD Physical Therapy Treatment Note M2 PT-IP Current Condition Start: 02/10/24 16:49 Freq: NEEDED Status: Active Protocol: Document 02/10/24 15:25 AB (Rec: 02/10/24 17:06 AB [id number]) Physical Therapy Current Condition Current Condition Evaluation Date 02/10/24 Treatment Diagnosis s/p R EMANUEL anterior; difficulty in walking Onset Date 02/10/24 M3 PT-IP Subjective Start: 02/10/24 16:49 Freq: NEEDED Status: Active Protocol: Document 02/11/24 15:22 TS (Rec: 02/11/24 15:33 TS [id number]) Subjective Physical Therapy Visit Type Type Treatment Note Visit Start Time 14:18 Visit Stop Time 14:50 Notes BP: supine 108/44, sitting 116 /55, standing 95/44, supine 123/58. Number of BATCH ROOM TECHNICIAN Visits 2 Physical Therapy Visit Comments Patient Comments Pt found resting in bed, is agreeable to PT. Therapy Pain Assessment Pain When Pain Assessed At Rest Pain Present Pain Present Pain Reported M4 PT-IP Mobility and Gait Start: 02/10/24 16:49 Freq: NEEDED Status: Active Protocol: Document 02/11/24 15:22 TS (Rec: 02/11/24 15:33 TS [id number]) PT-Bed Mobility Assessment Supine to Sit Supine to Sit Standby Assistance Sit to Supine Sit to Supine Moderate Assistance,1 Person Assistance,Bedrails Scooting Scooting to Edge of Bed Standby Assistance PT-Transfer Assessment Sit to and From Stand Sit to and from Stand Standby Assistance Equipment Transfer Assistive Device Gait Belt,Front Wheeled Walker Orthotic/Prosthetic Devices or Brace: No Comments Mobility Comments BP in supine 108/44. Supine to sit with HOB elevated 20D SBA with BUE support. BP in sitting 116/55, pt denied any nausea or lightheadedness. STS from bed SBA with FWW, pt has good standing balance. BP in standing 95/44, pt reported nausea and dizziness, requested to sit back EOB. Pt agreed to try to ambulate. She ambulated in room ~25'SBA with FWW, reported increase in dizziness and nausea. Sit to supine into bed ModA for LE's. BP in supine 123/58. Pt performed ankle pumps, quad sets, glute sets and heel slides. Pt was left in bed, all needs met. Gait Assessment Gait Gait Assistance Required: Standby Assistance Distance (Feet) 25 Assistive Devices Assistive Device Gait Belt,Front Wheeled Walker Orthotic/Prosthetic Devices or Brace: No Gait Deviations General Gait Pattern Wide Based Gait Factors Limiting Gait Function Factors Limiting Gait Function Decreased Activity Tolerance, Decreased Strength,Pain,Poor Balance,Poor Safety Awareness PT-Balance Assessment Sitting Balance and Reactions Static Sitting Balance Ability Good Dynamic Sitting Balance Ability Good Standing Balance and Reactions Static Standing Balance Ability Fair Dynamic Standing Balance Ability Fair Device Used FWW M5 PT-IP Objective Assessments Start: 02/10/24 16:49 Freq: NEEDED Status: Active Protocol: Document 02/10/24 15:25 AB (Rec: 02/10/24 17:06 AB [id number]) Orientation Orientation/Cognition Level of Alertness Alert Orientation Name,Situation Language Function Ability No Deficits Noted Safety Awareness Decreased Safety Awareness Memory Description No Deficits Noted Gross Range of Motion Lower Extremity ROM Assessment Within Functional Limits Strength Lower Extremity Strength Assessment Right Impaired Hip 2+/5 Knee 3+/5 Coordination Assessment Gross Coordination Gross Coordination WNL Sensation Assessment Sensation Gross Sensation WNL Muscle Tone Muscle Tone WNL Yes M6 PT-IP Treatment Start: 02/10/24 16:49 Freq: NEEDED Status: Active Protocol: Document 02/11/24 15:22 TS (Rec: 02/11/24 15:33 [id number]) Physical Therapy Treatment Exercises Exercises Ankle Pumps,Gluteal Sets,Quad Sets,Heel Slides Education Education Provided Precautions,Weight Bearing Status,Post-Op Packet,Safety M7 PT-IP Assessment and Plan Start: 02/10/24 16:49 Freq: NEEDED Status: Active Protocol: Document 02/11/24 15:22 TS (Rec: 02/11/24 15:33 [id number]) PT Summary Assessment and Plan Potential Rehabilitation Potential Fair Summary Impairments Pain,ROM,Strength,Balance, Coordination,Sensation,Tone, Cognition,Bed Mobility, Transfers,Gait,Activity Tolerance Progress Towards Goals Slow Progress due to Medical Issues Assessment Summary Stephanie is doing well with her mobility but remains limited by hypotension. She is SBA for supine to sit and for STS from bed. She continues to ambulate short distances in room SBA with FWW. She continues to be orthostatic and reports nausea and dizziness(see vitals above). PT is recommending pt return home with 24/7 assist and outpatient PT. Goals Bed Mobility Goal Independent Transfer Goal Independent,Front Wheeled Walker Gait Goal Independent,Front Wheel Walker Gait Distance 150 Days to Meet Goals 5 Frequency of Treatment Frequency Of Treatment Twice a Day Treatment Plan Physical Therapy Treatment Plan Bed Mobility Training,Transfer Training,Gait Training, Therapeutic Exercise,Balance Retraining,Post Op Education, Discharge Planning,Hot or Cold Pack,Neuromuscular Re-ed, Coordination Retraining,Manual Therapy Precautions Anterior Hip Precautions No Hip Extension,No Hip External Rotation Weight Bearing Status Weight Bearing Status Weight Bear as Tolerated Allowed Weight Bearing Amount (enter % RLe WBAT or #) (%) Recommendations To Nursing Amount of Assist Needed 1 Person Assist Discharge Recommendations PT Discharge Recommendations Home with 24/7 Assist Available,Outpatient PT Transportation Needs at Discharge Private Vehicle
[2024-02-11 15:16] VITALS: BP 95/26; PULSE 85; RESP 21; O2SAT 96
--- NOTE | 2024-02-11 15:41 | PC.NURSE ---
Pt has had orthostatic hypotension throughout the shift. The pt has continued to push oral fluids and attempt increase her food intake. Physical therapy had worked with her josi this afternoon and has reported that the pt was having orthostatic hypotension and has been symptomatic with the pt becoming nauseated, flushed, cool and clammy skin. Pt's last set of othrostatics taken at 1515 are as follows: Supine--95/26 MAP 49 HR 85 Sitting--96/46 MAP 65 HR 116 standing-- 123/58 (80) HR 84
[2024-02-11] MEDS: TRAMADOL 50 MG TABLET PO (17:52)
[2024-02-11 20:00] VITALS: BP 115/60; PULSE 93; RESP 16; TEMP 36.6; O2SAT 98
[2024-02-12] MEDS: PANTOPRAZOLE DR 20 MG TABLET PO (05:17)
[2024-02-12] MEDS: ACETAMINOPHEN 325 MG TABLET 650 MG PO ×2 (05:17→10:38)
[2024-02-12] MEDS: IBUPROFEN 600 MG TABLET PO ×2 (05:17→10:38)
[2024-02-12 08:00] VITALS: BP 88/41; PULSE 87; RESP 16; TEMP 35.8; O2SAT 97
[2024-02-12] MEDS: DOCUSATE 100 MG CAPSULE PO (08:34)
[2024-02-12] MEDS: ASPIRIN EC 81 MG TABLET PO (08:34)
[2024-02-12] MEDS: OXYCODONE IR 5 MG TABLET PO (09:28)
--- NOTE | 2024-02-12 09:56 | PT.IPTN ---
Current Diagnoses Unilateral primary osteoarthritis, right hip (02/10/24) Surgery Performed Operation Date: 02/10/24 07:45 Actual Procedures p Total Hip Arthroplasty/Anterior Approach(Right) - Mendoza Bacon MD Physical Therapy Treatment Note M2 PT-IP Current Condition Start: 02/10/24 16:49 Freq: NEEDED Status: Discharge Protocol: Document 02/10/24 15:25 AB (Rec: 02/10/24 17:06 AB [id number]) Physical Therapy Current Condition Current Condition Evaluation Date 02/10/24 Treatment Diagnosis s/p R EMANUEL anterior; difficulty in walking Onset Date 02/10/24 M3 PT-IP Subjective Start: 02/10/24 16:49 Freq: NEEDED Status: Discharge Protocol: Document 02/12/24 09:25 KS (Rec: 02/12/24 11:55 KS [id number]) Subjective Physical Therapy Visit Type Type Treatment Note Visit Start Time 09:25 Visit Stop Time 09:56 Notes BP stable throughout treatment Number of CHILDREN'S TUTOR NURSERY Visits 3 Physical Therapy Visit Comments Patient Comments Pt found resting in bed, is agreeable to PT. M4 PT-IP Mobility and Gait Start: 02/10/24 16:49 Freq: NEEDED Status: Discharge Protocol: Document 02/12/24 09:25 KS (Rec: 02/12/24 11:55 KS [id number]) PT-Transfer Assessment Sit to and From Stand Sit to and from Stand Standby Assistance Equipment Transfer Assistive Device Gait Belt,Front Wheeled Walker Orthotic/Prosthetic Devices or Brace: No Transfers Transfer Destination Bed Transfer Technique Stand Step Pivot Transfer Ability Level of Assist Standby Assistance,Contact Guard Assistance Comments Mobility Comments Pt in chair upon arrival. Reports no lightheadedness so far today. BP stable throughout treatment and pt has no symptoms. SBA for sit<> Stand w/ FWW, pt amublated ~60 ft in room w/ FWW and the returned to her chair. Good carryover of precautions and sequencing. Discussed at home safety and pt feels ready to return home w/ her daughter and family supporting her. Gait Assessment Gait Gait Assistance Required: Standby Assistance,Contact Guard Assist Distance (Feet) 60 Assistive Devices Assistive Device Gait Belt,Front Wheeled Walker Orthotic/Prosthetic Devices or Brace: No Gait Deviations General Gait Pattern Wide Based Gait Factors Limiting Gait Function Factors Limiting Gait Function Decreased Activity Tolerance, Decreased Strength,Pain,Poor Balance,Poor Safety Awareness Comments Gait Comments See mobility section. Stair Climbing Assessment Comments Stair Climbing Comments no stairs. PT-Balance Assessment Sitting Balance and Reactions Static Sitting Balance Ability Good Dynamic Sitting Balance Ability Good Standing Balance and Reactions Static Standing Balance Ability Fair Dynamic Standing Balance Ability Fair Device Used FWW M5 PT-IP Objective Assessments Start: 02/10/24 16:49 Freq: NEEDED Status: Discharge Protocol: Document 02/10/24 15:25 AB (Rec: 02/10/24 17:06 AB [id number]) Orientation Orientation/Cognition Level of Alertness Alert Orientation Name,Situation Language Function Ability No Deficits Noted Safety Awareness Decreased Safety Awareness Memory Description No Deficits Noted Gross Range of Motion Lower Extremity ROM Assessment Within Functional Limits Strength Lower Extremity Strength Assessment Right Impaired Hip 2+/5 Knee 3+/5 Coordination Assessment Gross Coordination Gross Coordination WNL Sensation Assessment Sensation Gross Sensation WNL Muscle Tone Muscle Tone WNL Yes M6 PT-IP Treatment Start: 02/10/24 16:49 Freq: NEEDED Status: Discharge Protocol: Document 02/12/24 09:25 KS (Rec: 02/12/24 11:55 KS [id number]) Physical Therapy Treatment Exercises Exercises Ankle Pumps,Gluteal Sets,Quad Sets,Heel Slides Education Education Provided Precautions,Weight Bearing Status,Post-Op Packet,Safety M7 PT-IP Assessment and Plan Start: 02/10/24 16:49 Freq: NEEDED Status: Discharge Protocol: Document 02/12/24 09:25 KS (Rec: 02/12/24 11:55 KS [id number]) PT Summary Assessment and Plan Potential Rehabilitation Potential Good Summary Impairments Pain,ROM,Strength,Balance, Coordination,Sensation,Tone, Cognition,Bed Mobility, Transfers,Gait,Activity Tolerance Progress Towards Goals Progressing Toward Goals Assessment Summary Pt able to show progress today without any BP issues or symptoms. Her BP was stable from sitting to standing and after tx. She increased ambulation distance to 60 ft w / FWW. She will be staying w/ her dtr at dc, has no stairs, and feels ready go go home. Goals Bed Mobility Goal Independent Transfer Goal Independent,Front Wheeled Walker Gait Goal Independent,Front Wheel Walker Gait Distance 150 Days to Meet Goals 5 Frequency of Treatment Frequency Of Treatment Twice a Day Treatment Plan Physical Therapy Treatment Plan Bed Mobility Training,Transfer Training,Gait Training, Therapeutic Exercise,Balance Retraining,Post Op Education, Discharge Planning,Hot or Cold Pack,Neuromuscular Re-ed, Coordination Retraining,Manual Therapy Precautions Anterior Hip Precautions No Hip Extension,No Hip External Rotation Weight Bearing Status Weight Bearing Status Weight Bear as Tolerated Allowed Weight Bearing Amount (enter % RLe WBAT or #) (%) Recommendations To Nursing Amount of Assist Needed 1 Person Assist Discharge Recommendations PT Discharge Recommendations Home with 23/05 Assist Available,Outpatient PT Transportation Needs at Discharge Private Vehicle
--- NOTE | 2024-02-12 12:18 | CM.DPC ---
DCP Discharge Home Per Ortho, pt's orthostatics seems to have stablized and pt medically stable to discharge home today and no identified barriers to discharge. Per DELIVERY TABLE FEEDER, pt participated in CG training today and cleared for safe d/c home with Dtr assist and outpt f/u and no bp issues. Per RN, discharge instructions provided and no concerns noted. Plan: Patient to discharge home with Dtr to stay and assist and outpt f/u and no further SW needs at this time. THOMAS Stubbs
== END 2024-02-12 11:35 | disposition home or self-care (01) ==
LOC: OR 06:18 → AC 06:20
PROVIDERS: Referring Provider Physical Medicine & Rehabilitation; Visit Provider Orthopaedic Surgery Adult Reconstructive Orthopaedic Surgery
PROC: (CPT 27130; principal; 2024-02-10 07:45)
DX: M16.11 Unilateral primary osteoarthritis, right hip (principal)
CPT/HCPCS: 27130; 36415; 73502; 76000; 85014; 85018; 97116; 97162; 97530; C1776; J0330; J0690; J1100; J2250; J2405; J2704; J3010; J3410